=== PATIENT | male | born 1955 | race Caucasian/White ===

== ENCOUNTER 2022-11-18 08:09 | Day surgery (SDC) | payer MEDICARE ==
[2022-11-15 11:06] VITALS: BMI 29.9
[2022-11-18] MEDS ORDERED: Methylene Blue 50 MG/10 ML AMPUL ONE (10:54)
[2022-11-18] MEDS ORDERED: Bupivacaine 0.25% HCL 30 ML VIAL ONE (10:54)
[2022-11-18] MEDS ORDERED: Sodium Chloride 0.9% 100 ML ONE (10:54)
[2022-11-18] MEDS ORDERED: EPINEPHrine 1 MG/ML AMP ONE (10:54)
[2022-11-18] MEDS ORDERED: CEFAZOLIN 2 GM VIAL ONE (10:54)
[2022-11-18] MEDS ORDERED: Heparin 5,000 UNITS/ML VIAL ONE (10:55)
[2022-11-18] MEDS ORDERED: fentaNYL PF 100 MCG/2 ML SYRINGE ONE (11:12)
[2022-11-18] MEDS ORDERED: Isosulfan Blue 50 MG/5 ML VIAL ONE (11:37)
[2022-11-18] MEDS ORDERED: ePHEDrine Sulfate 50 MG/10 ML VIAL ONE (11:39)
[2022-11-18] MEDS ORDERED: Dexamethasone 20 MG/5 ML VIAL ONE (11:39)
[2022-11-18] MEDS ORDERED: Ketorolac Tromethamine 30 MG/ML VIAL ONE (11:39)
[2022-11-18] MEDS ORDERED: Lidocaine 1% PF 5 ML VIAL ONE (11:39)
[2022-11-18] MEDS ORDERED: Ondansetron PF 4 MG/2 ML Vial ONE (11:39)
[2022-11-18] MEDS ORDERED: PROPOFOL 200 MG/20 ML VIAL ONE (11:39)
[2022-11-18] MEDS ORDERED: fentaNYL 50 mcg/mL 1 mL Vial ONE (14:24)
== END 2022-11-18 16:46 | disposition home or self-care (01) ==
LOC: NM 08:09
PROVIDERS: ATTEND Plastic Surgery
PROC: 07B50ZX Excision of Right Axillary Lymphatic, Open Approach, Diagnostic (ICD-10-PCS; principal; 2022-11-18)
PROC: 0JB60ZZ Excision of Chest Subcutaneous Tissue and Fascia, Open Approach (ICD-10-PCS; 2022-11-18)
DX: C43.59 Malignant melanoma of other part of trunk (principal); I10 Essential (primary) hypertension
CPT/HCPCS: 11606; 13101; 13102 ×2; 38500; 78195; 93005; A9541; C1713; J3010; Q9968 ×2; 88305; 88307; 93010; J0171; J1100; J1644; J1885; J2405; J2704; J3490; S0020